=== PATIENT | male | born 1970 | race Caucasian/White ===

== ENCOUNTER → 2017-04-19 | Outpatient (CLI) | payer OTHER ==
[~2017-04-19] MED LIST: CPAP INH; HYDRODIURIL25 MG PO; PAROXETINE HCL30 MG PO; TENORMIN25 MG PO
== END ==
LOC: LKCL 11:12
DX: R19.7 Diarrhea, unspecified (principal); R55 Syncope and collapse

== ENCOUNTER → 2017-05-01 | Day surgery (SDC) | payer OTHER ==
[~2017-05-01] VITALS: Ht 190.5 cm; Wt 120.3 kg
== END | disposition disaster alternative care site (69) ==
LOC: GPOC 04-30 16:00
PROC: 0DJD8ZZ Inspection of Lower Intestinal Tract, Via Natural or Artificial Opening Endoscopic (ICD-10-PCS; principal; 2017-05-01)
DX: K64.8 Other hemorrhoids (principal); K62.5 Hemorrhage of anus and rectum; I10 Essential (primary) hypertension; F32.9 Major depressive disorder, single episode, unspecified; F41.9 Anxiety disorder, unspecified; G47.30 Sleep apnea, unspecified
CPT/HCPCS: J2001; J7030